=== PATIENT | male | born 1990 | race Caucasian/White ===

== ENCOUNTER 2019-08-08 18:34 | Emergency (ER) | payer OTHER, SELFPAY ==
[2019-08-08 19:01] VITALS: BP 133/84; PULSE 61; RESP 18; TEMP 36.9; O2SAT 99; BMI 21.4
--- NOTE | 2019-08-08 20:42 | ED_ITS ---
HPI - Dental/Oral General Chief complaint: Dental/Oral Stated complaint: Face Swollen on Right Side Time Seen by Provider: 08/08/19 19:00 Source: patient Mode of arrival: Family Vehicle Limitations: no limitations History of Present Illness HPI Narrative: 28-year-old male nonsmoker with noncontributory medical history presents with a chief complaint of widespread poor dentition with some swelling on the right side of his face and what feels like an abscess on the inside. He denies any foul taste. He denies any trouble swallowing or breathing. He denies any fever, chills nor nausea or vomiting. He admits to prior dental procedures and dental abscesses MD Complaint: tooth pain Onset (ago): day(s) Duration: constant Severity: moderate Relieving factors: nothing Exacerbating factors: chewing and heat Context: history of dental caries and poor dental care Treatment prior to arrival: none Related Data Home Medications Medication Instructions Recorded Confirmed acetaminophen 1,000 mg PO #0 08/27/07 Previous Rx's Medication Instructions Recorded clindamycin HCl 300 mg PO TID 10 Days #30 cap 08/08/19 Allergies Allergy/AdvReac Type Severity Reaction Status Date / Time Penicillins Allergy Verified 08/08/19 19:06 Review of Systems Constitutional Constitutional: Denies chills, Denies fatigue, Denies fever(s), Denies frequent falls, Denies lethargy and Denies weakness Eyes Eyes: Denies change in vision, Denies eye discharge, Denies irritation and Denies loss of vision ENT Ears, Nose, Mouth, and Throat: Denies change in voice, Reports dental pain, Denies dizziness, Reports facial pain, Denies neck pain, Denies sore throat and Denies throat swelling Cardiovascular Cardiovascular: Denies chest pain, Denies irregular heart rhythm, Denies lightheadedness, Denies palpitations, Denies dyspnea, Denies dyspnea on exertion and Denies orthopnea Respiratory Respiratory: Denies cough, Denies dyspnea, Denies dyspnea on exertion and Denies wheezing Gastrointestinal Gastrointestinal: Denies abdominal pain, Denies change in bowel habits, Denies diarrhea, Denies nausea and Denies vomiting Genitourinary Genitourinary: Denies hematuria, Denies flank pain, Denies urinary incontinence and Denies urinary urgency Musculoskeletal Musculoskeletal: Denies back pain, Denies muscle weakness, Denies neck pain, Denies numbness and Denies tingling Integumentary/Breasts Skin/Breast: Denies pruritus, Denies erythema, Denies rash and Denies wounds Neurologic Neurologic: Denies behavioral changes, Denies confusion, Denies dizziness, Denies frequent falls, Denies loss of vision, Denies numbness, Denies tingling and Denies weakness Psychiatric Psychiatric: Denies anxiety, Denies behavioral changes, Denies confusion, Denies depression, Denies homicidal ideation and Denies suicidal ideation Endocrine Endocrine: Denies fatigue, Denies flushing and Denies palpitations Hematologic/Lymphatic Hematologic/Lymphatic: Denies easy bruising Allergic/Immunologic Allergic/Immunologic: Denies urticaria, Denies throat swelling and Denies wheezing Patient History Social History Smoking Status: Current every day smoker Smoking Status: Current every day smoker alcohol intake frequency: holidays/special occasions only Substance Use Type: marijuana Exam Narrative Exam Narrative: GENERAL: [28] year old patient appears stated age. Well- nourished, well-developed patient, in mild distress. HEAD: Atraumatic. Normocephalic. Right-sided facial swelling, no redness no warmth or fluctuance EYES: Pupils equal round and reactive. Extraocular motions intact. No scleral icterus. No injection or drainage. ENT: Poor dentition throughout with palpable dental abscess adjacent to right upper premolar Nose without bleeding, purulent drainage. Throat without erythema, tonsillar hypertrophy or exudate. Airway patent. NECK: Trachea midline. Non tender CARDIOVASCULAR: Regular rate and rhythm without murmurs, gallops, or rubs. RESPIRATORY: Clear to auscultation. Breath sounds equal bilaterally. No wheezes, rales, or rhonchi. GASTROINTESTINAL: Abdomen soft, non-tender, nondistended. EXTREMITIES: No edema or joint tenderness. BACK: Nontender without deformity or crepitance. No flank tenderness. NEURO: AOx3. SKIN: No rash or erythema of visible areas Initial Vital Signs Initial Vital Signs: Vital Signs Temperature 98.4 F 08/08/19 19:01 Pulse Rate 61 08/08/19 19:01 Respiratory Rate 18 08/08/19 19:01 Blood Pressure 133/84 08/08/19 19:01 Pulse Oximetry 99 08/08/19 19:01 Procedures Abscess I/D I&D #1: Site: oral Local Anesthetic: bupivacaine 0.25% and with epi Amount of anesthesia used (mL): 3 Technique: needle aspiration Amount of fluid expressed (mL): 2 Irrigation: No Packing used?: none Course Orders Ordered: Discontinued Medications Hydrocodone Bitart/Acetaminophen (Vicodin 5/325 Prepack) 1 bottle MISC SEEINSTR ONE Stop: 08/08/19 19:12 Last Admin: 08/08/19 20:51 Dose: 1 bottle Documented by: JOESPH Bupivacaine HCl/Epinephrine Bitart (Sensorcaine 0.5% W/ Epi (Pf)) 5 ml SUBCUT NOW ONE Stop: 08/08/19 19:11 Last Admin: 08/08/19 20:52 Dose: 5 ml Documented by: JOESPH Clindamycin HCl (Cleocin) 300 mg PO NOW ONE Stop: 08/08/19 19:11 Last Admin: 08/08/19 20:51 Dose: 300 mg Documented by: JOESPH Vital Signs Vital signs: Vital Signs - 8 hr 08/08/19 19:01 Temperature 98.4 F Pulse Rate 61 Respiratory Rate 18 Blood Pressure 133/84 Pulse Oximetry 99 Discharge Plan Departure Patient Disposition: Home Clinical Impression: Dental abscess Discharge Date/Time: 08/08/19 20:59 Instructions: Tooth Abscess, DI for Dental Pain Activity Restrictions/Additional Instructions: *You have been diagnosed with [dental abscess] *What to do: *Take medications as directed *Follow up with your primary care provider in 2-3 days, call for an appointment. Let them know you were seen in the Emergency Department and that we ask that you be seen in follow up *Return to ER if you should have any new, worsening or concerning symptoms Prescriptions: New clindamycin HCl 300 mg capsule 300 mg PO TID 10 Days Qty: 30 RF: 0 No Action acetaminophen 325 MG tablet 1,000 mg PO Qty: 0 RF: 0 Stand Alone Forms: Work Release Note
[2019-08-08] MEDS: HYDROCODONE/ACET 5/325 PREPACK 1 BOTTLE MISC (20:51)
[2019-08-08] MEDS: CLINDAMYCIN 150 MG CAPSULE 300 MG PO (20:51)
[2019-08-08] MEDS: BUPIVACAINE 0.5% W/ EPI (PF) 30 ML VIAL 5 ML SUBCUT (20:52)
--- NOTE | 2019-08-08 20:57 | PC.NURSE ---
visibly swollen right cheek. Denies vision changes.
[2019-08-08 20:58] VITALS: BP 118/81; PULSE 78; RESP 16; O2SAT 99
== END 2019-08-08 20:59 | disposition home or self-care (01) ==
PROVIDERS: Emergency Provider Emergency Medicine
DX: K04.7 Periapical abscess without sinus (principal)
CPT/HCPCS: 10060; 99283